=== PATIENT | male | born 1950 | race Caucasian/White ===

== ENCOUNTER 2020-04-06 12:37 | Emergency (ER) | payer OTHER, MEDICARE, SELFPAY ==
[2020-04-06 12:39] VITALS: BP 130/86; PULSE 80; RESP 18; TEMP 36.4; O2SAT 96; BMI 23.5
--- NOTE | 2020-04-06 13:00 | RAD_ITS ---
STUDY: X-RAY - LEFT WRIST REASON FOR EXAM: Male, 69 years old. FALL, PAIN TECHNIQUE: 3 view(s) of the wrist were obtained. COMPARISON: None. FINDINGS: Nondisplaced transverse fracture of the distal radial metaphysis with extension to the articular surface. Normal radiocarpal articulation. Normal distal radioulnar articulation. Normal carpal bones. Normal carpal articulations. Normal carpometacarpal articulation of the thumb. Normal second through fifth carpometacarpal articulations. Normal visualized metacarpal bones. Soft tissue swelling. RAD/Wrist min 3 Views IMPRESSION: Nondisplaced transverse fracture of the distal radial metaphysis with extension to the articular surface. Soft tissue swelling. Electronically Signed: Declan Martinez, at 13:18 EDT , Service support ,
--- NOTE | 2020-04-06 13:06 | ED.VIS.GEN ---
History of Present Illness Chief Complaint: Upper Extremity Injury Informant: Patient Onset: Today Context: Sudden Onset Timing: Continuous Current Severity: Moderate Maximum Severity: Moderate Narrative: The patient is a [id number] male that presents to the emergency department left left wrist injury. Patient states that he was standing working on his truck. He lost his balance and fell. He landed on an outstretched left wrist. He said some pain and swelling in the wrist. He did not strike his head. He denies other injury. He is otherwise been in his normal state of health. Prior similar symptoms: No Recent Illness/Hospitalization: No Past Medical History - Allergies and Home Meds Allergies/Adverse Reactions: Allergies No Known Allergies Allergy (Verified 04/06/20 12:43) Primary Care Physician: Tim Patterson MD [STAFF PHYSICIAN] - Prior records reviewed: Yes Past Medical History: - - Patient denies any significant medical history Surgical History: noncontributory Review of Systems General: Denies: Chills, Fever, Sweats Eyes: Denies: Visual changes - bilaterally, Diplopia ENT: Denies: Rhinorrhea, Sore throat Cardiovascular: Denies: Chest pain, Palpitations Respiratory: Denies: Dyspnea, Cough, Dyspnea on exertion Gastrointestinal: Denies: Abdominal pain, Nausea, Vomiting, Diarrhea, Melena, Hematochezia Genitourinary: Denies: Dysuria, Hematuria, Frequency Musculoskeletal: Denies: Back pain, Extremity Pain Skin: Denies: Rash, Wounds Neurological: Denies: Headache, Weakness, Numbness Physical Exam Vital Signs/Narrative: Vital Signs Temp Pulse Resp BP Pulse Ox 04/06/20 12:39 97.5 F L 80 18 130/86 H 96 Inital Vital Signs reviewed: Yes General: Well nourished, Well developed, No Acute Distress Head: Normocephalic, Atraumatic Eyes: Perrl, EOMI ENT: Moist mucous membranes, No rhinorrhea Neck: Supple, Nontender Cardiovascular: Regular rate, Regular rhythm, No murmurs Respiratory: No distress, CTA bilaterally, Chest nontender Abdomen: Soft, Nontender, Nondistended, Normal bowel sounds Back: Nontender, Normal Inspection Extremities: No edema, Tenderness - Tender over the dorsum of the left wrist. No obvious deformity. 2+ radial ulnar pulses. Anterior interosseous, posterior interosseous, and ulnar nerve preserved. Skin: Normal color, No rash Neurological: Alert, Oriented x3, Cranial nerves II-XII grossly intact, Normal Strength, Normal Sensation Psychological: Normal affect, Normal Mood Diagnostic/Tx/Re-eval - Medical Decision Making X-rays were obtained of the patient's wrist. He has a nondisplaced distal radius fracture with questionable intra-articular extension. Pulses are normal. He is neurovascular intact. The patient was placed in a custom Ortho-Glass AP splint using 20 inches of 3 inch Ortho-Glass. He is given a sling. He declined analgesics. He will be given outpatient orthopedic follow-up and will be discharged home. Impression 1. Closed nondisplaced distal radius fracture 2. Splint by ED physician ED Disposition - Plan for ED Patient: Instructions: ED Fx Colles Wrist No Redu Requ Referrals: Tim Patterson MD [STAFF PHYSICIAN] -
--- NOTE | 2020-04-06 13:17 | NURSING ---
MS 2, COVID UNIT PAINTSIL DYSPNEA, CHF, COVID
--- NOTE | 2020-04-06 13:56 | ED.RN ---
[facility] service called. this RN called the employer and talked to Blayne Hawkins from employer and he said no drug screen was needed. He would like not to go through workers comp and pay with ryan from employer. Transferred to registration. phone number [phone]
[2020-04-06 14:34] VITALS: RESP 16
== END 2020-04-06 14:36 | disposition home or self-care (01) ==
PROVIDERS: Emergency Provider Emergency Medicine
DX: S52.92XA Unspecified fracture of left forearm, initial encounter for closed fracture (principal); W01.0XXA Fall on same level from slipping, tripping and stumbling without subsequent striking against object, initial encounter
CPT/HCPCS: 29125; 73110; 99283

== ENCOUNTER → 2020-08-14 09:07 | Outpatient (CLI) | payer MEDICARE, OTHER, SELFPAY ==
[2020-08-14 10:37] LABS: PSA,Total- Diagnostic 2.26 ng/mL (0.0-4.0)
[2020-08-14 11:39] LABS: Bacteria 0 SEEN /hpf (None Seen); Mucous, Urine 0 SEEN /hpf (<or=2+)
[2020-08-14 11:51] LABS: Color, Urine Yellow (Yellow); Glucose, Dipstick Normal (Normal); Ketone-Dipstick Negative (Negative); Leukocyte Esterase-Dipstick 25 /ul (Negative); Nitrite-Dipstick Negative (Negative); Occult Blood-Urine 25 /ul (Negative); Protein-Dipstick Negative (Negative); Specific Gravity, Urine 1.025 (1.002-1.030); Urine Bilirubin Dipstick Negative (Negative); Urine Clarity Sl. Cloudy (Clear); Urine Urobilinogen Normal (Normal)
[2020-08-14 12:01] LABS: Red Blood Cells-Urine 0-5 SEEN /hpf (0-5); Squamous Epithelial Cells - UA 0-5 SEEN /hpf (0-5); White Blood Cells 0-5 SEEN /hpf (0-5)
== END ==
PROVIDERS: PCP Family Medicine; Referring Provider Nurse Practitioner Adult Health; Visit Provider Nurse Practitioner Adult Health
DX: N40.2 Nodular prostate without lower urinary tract symptoms (principal); R31.9 Hematuria, unspecified
CPT/HCPCS: 36415; 81001; 84153

== ENCOUNTER → 2023-06-22 | Outpatient (CLI) | payer MEDICARE, OTHER, SELFPAY ==
[2023-06-22 17:38] LABS: PSA,Total - Annual Screen 3.73 ng/mL (0.00-4.00)
[2023-06-24 11:09] LABS: QNTFERON TB Mitogen Value > 10.00 IU/mL (.); QNTFERON TB Nil Value 0.06 IU/mL (.); QNTFERON TB1+ Ag Value 0.07 IU/mL (.); QNTFERON TB2+ Ag Value 0.05 IU/mL (.); QNTIFERON TB Positive Criteria Negative (Negative)
== END | disposition home or self-care (01) ==
PROVIDERS: PCP Family Medicine; Referring Provider Urology; Visit Provider Urology
DX: Z12.5 Encounter for screening for malignant neoplasm of prostate (principal)
CPT/HCPCS: 36415; 84153; 86480; G0103

== ENCOUNTER 2023-12-29 09:56 | Outpatient (CLI) | payer MEDICARE, OTHER, SELFPAY ==
[2023-12-29 10:03] LABS: Bacteria 0 SEEN /hpf (None Seen); Mucous, Urine 0 SEEN /hpf (<or=2+); Red Blood Cells-Urine 0 SEEN /hpf (0-5); Squamous Epithelial Cells - UA 0 SEEN /hpf (0-5); White Blood Cells 0 SEEN /hpf (0-5)
[2023-12-29 12:11] LABS: Erythrocyte Sedimentation Rate 37 mm/hr (0-20)
[2023-12-29 12:14] LABS: Absolute Lymphocyte Count 0.76 X10^3/uL (0.83-4.51); Absolute Neutrophil Count 8.9 X10^3/uL (2.0-7.7); Basophil# 0.06 X10^3/uL; Basophil% 0.6 % (0-1); Color, Urine Yellow (Yellow); Eosinophil# 0.06 X10^3/uL; Eosinophils% 0.6 % (0-5); Glucose, Dipstick Normal (Normal); Hematocrit 43.2 % (40-54); Hemoglobin 13.9 g/dL (13.0-16.5); Ketone-Dipstick 5 mg/dl (Negative); Leukocyte Esterase-Dipstick 25 /ul (Negative); Lymphocyte # 0.76 X10^3/ul (0.83-4.51); Mean Corp Hgb Conc 32.2 g/dL (32-36); Mean Corpuscular Hgb 28.3 pg (27.0-32.0); Mean Corpuscular Volume 87.8 fL (80-94); Mean Platelet Vol. 11.8 fl (6.2-12.0); Monocyte# 0.99 X10^3/uL; Monocyte% 9.1 % (0-10); NRBC Flagged by Analyzer 0 % (0-5); Neutrophil # 8.92 X10^3/uL (2.7-7.7); Neutrophil % 82.3 % (47-70); Nitrite-Dipstick Negative (Negative); Occult Blood-Urine 10 /ul (Negative); Platelet Count 243 K/mm3 (150-450); Protein-Dipstick 15 mg/dl (Negative); RBC Distribution Width CV 15.3 % (11.6-14.6); RBC Distribution Width SD 48.9 fl (35.1-43.9); Red Blood Count 4.92 M/mm3 (4.6-6.2); Urine Bilirubin Dipstick Negative (Negative); Urine Clarity Clear (Clear); Urine Urobilinogen 4 mg/dl (Normal); White Blood Count 10.8 K/mm3 (4.4-11.0)
[2023-12-29 12:33] LABS: Calcium Oxalate Crystals Ur 3+ /hpf (<or=2+)
[2023-12-29 13:31] LABS: ALB/GLOB Ratio 0.8 RATIO (0.9-2.4); AST(SGOT) 79 U/L (15-37); Alanine Aminotransfer ALT/SGPT 133 U/L (16-61); Albumin, Serum 3.4 g/dL (3.2-5.0); Alkaline Phosphatase 662 U/L (45-117); Anion Gap 2 (5-15); BUN 21 mg/dL (7-18); BUN/Creat Ratio 20.6 RATIO (10-20); Calcium,Total 11.2 mg/dL (8.5-10.1); Chloride 107 mmol/L (98-107); Creatinine, Serum 1.02 mg/dL (0.70-1.30); EST Glomerular Filtration Rate 76 mL/min (>60); Est Glom Filt Rate - Afr Amer 92 mL/min (>60); GGTP 426 U/L (15-85); Globulin 4.3 g/dL (2.2-4.2); Glucose 92 mg/dL (74-106); Lipase 25 U/L (13-75); Potassium 4.1 mmol/L (3.5-5.1); Protein, Total 7.7 g/dL (6.4-8.2); Sodium Level 134 mmol/L (136-145); Thyroid Stim Hormone (TSH) 1.17 uIU/mL (0.358-3.74)
[2023-12-30 13:08] LABS: ANTINUCLEAR ANTIBODIES DIRECT Negative (Negative)
[2024-01-06 12:09] LABS: H. PYLORI STOOL AG Negative (Negative); Pancreatic Elastase, Fecal 161 (>200)
== END 2023-12-29 23:59 | disposition home or self-care (01) ==
PROVIDERS: PCP Family Medicine; Referring Provider Family Medicine; Visit Provider Family Medicine
DX: R19.7 Diarrhea, unspecified (principal); R11.2 Nausea with vomiting, unspecified
CPT/HCPCS: 36415; 80053; 81001; 82653; 82977; 83690; 84443; 85025; 85652; 86038; 86140; 87338

== ENCOUNTER → 2024-01-13 | Outpatient (CLI) | payer MEDICARE, OTHER, SELFPAY ==
--- NOTE | 2024-01-13 13:29 | CT_ITS ---
STUDY: CT ABDOMEN AND PELVIS WITH CONTRAST REASON FOR EXAM: Male, 73 years old. Postprandial abdominal pain and nausea. RADIATION DOSAGE (If Supplied By Facility): CTDIvol = ( 12.22 ) mGy, DLP = ( 632.07 ) mGycm TECHNIQUE: Transaxial images were obtained from the dome of the diaphragm to the symphysis pubis with oral contrast. Oral and amp; IV Readi-CAT and amp; 100mL Isovue-300 was administered. Sagittal and coronal images were reconstructed. Individualized dose optimization techniques were used for this CT. COMPARISON: None. FINDINGS: Minimal degree of bibasilar atelectasis. Mild coronary artery calcification. Mild degree of the intrahepatic biliary ductal dilatation. Abnormal appearance of the gallbladder. Soft tissue masses are seen within the gallbladder extending into the neck of the gallbladder. Tumefactive sludge versus possible mass should be ruled out. Normal spleen. 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 Normal pancreas. Normal bilateral adrenal glands. Normal right kidney. Normal left kidney. Normal visualized stomach. Normal small intestine. There are multiple colonic diverticula consistent with diverticulosis. The appendix is visualized and appears normal. Normal abdominal aorta. Normal inferior vena cava. Normal retroperitoneum. Normal urinary bladder. There is heterogeneous enlargement of prostate with indentation at the bladder base. This also causes indentation along the anterior right side of the rectum. The prostate measures 5.9 cm x 5.3 cm. It is of heterogeneous echotexture with calcifications. Normal abdominal wall. There are diffuse degenerative changes of the visualized lumbar spine. There is evidence of a 1.1 cm sclerotic lesion in the right iliac bone. This may represent either bone island or possible metastasis. CT/Abdomen/Pelvis WITH Contrast IMPRESSION: Abnormal appearance of the gallbladder with evidence of the soft tissue densities within the gallbladder and neck of the gallbladder. This may represent either tumefactive sludge with possible mass lesion. Intrahepatic bile ductal dilatation. Electronically Signed: Declan Martinez MD at 14:40 EST ,
== END | disposition home or self-care (01) ==
LOC: CT 13:28
PROVIDERS: PCP Family Medicine; Referring Provider Family Medicine; Visit Provider Family Medicine
DX: R74.01 Elevation of levels of liver transaminase levels (principal)
CPT/HCPCS: 74177; Q9967

== ENCOUNTER → 2024-01-26 | Outpatient (CLI) | payer MEDICARE, OTHER, SELFPAY ==
--- NOTE | 2024-01-26 07:09 | US_ITS ---
INDICATION: abnormal CT, elevated LFTs EXAMINATION: Ultrasound US Abdomen Limited (quadrant) TECHNIQUE: Lopes scale and color doppler imaging was performed of the right upper quadrant. COMPARISON: CT scan of the abdomen and pelvis of 01/13/2024. FINDINGS: LIVER: There is normal echotexture. The liver is enlarged measuring about 18.3 cm in length. The portal vein is patent with normal hepatopedal flow. Dilated intrahepatic biliary ducts. No focal hepatic lesion. There is no free fluid. GALLBLADDER AND BILIARY TREE: Diffuse thickening of the gallbladder wall measuring about 6 mm. There is sludge in the gallbladder with single large gallstone. The proximal common bile duct measures 8 mm, which is dilated. Sonographic Pineda''s sign: Negative. PANCREAS: No focal abnormality is demonstrated in the pancreas. No pancreatic ductal dilatation. Right kidney: The right kidney measures 10.4 cm in length. The renal cortex measures 1.3 cm. No evidence of hydronephrosis. US/Gallbladder IMPRESSION: 1. Sludge and single large gallstone with thickening of the gallbladder wall. Cholecystitis cannot be excluded. 2. Dilated common bile duct and intrahepatic biliary ducts. Further evaluation with MRCP might be of value. 3. Hepatomegaly. Electronically Signed: Kenrick Silvestre MD at 8:16 EST ,
--- OUTSIDE RECORDS SUMMARY | 2024-01-26 07:27 | XMS RPT_ITS | CCD ---
Author Name Unknown Address [address] [place] [id number] Organization [facility] Care Team Providers Care Railcar Switchman Name Role Phone MARA TUCKER MD Admitting Unavailable MARA TUCKER MD Primary Care Unavailable MARA TUCKER MD Consulting Unavailable MARA TUCKER MD Attending Unavailable PROVIDER, UNKNOWN Consulting Unavailable PROVIDER, UNKNOWN Consulting Unavailable PROVIDER, UNKNOWN Consulting Unavailable Problems Active Problems Problem Classification Problem Date Documented Da te Episodic/Chronic Unclassified (2 sources) CONTACT WITH AND SUSPECTED EXPOSURE TO COVID-19; Translations: [CONTACT WITH AND SUSPECTED EXPOSURE TO COVID-19] Onset: 09-10-2022 Past or Other Problems Problem Classification Problem Date Documented Da te Episodic/Chronic Unclassified (1 source) CONTACT WITH AND SUSPECTED EXPOSURE TO COVID-19; Translations: [CONTACT WITH AND SUSPECTED EXPOSURE TO COVID-19] Onset: 09-10-2022 Results Test Name Value Interpretation Reference Range Facil ity Encounters Encounter Date Encounter Type Care Provider Facility Start: 09-10-2022 End: 09-10-2022 ambulatory [facility] Payers Date Payer Category Payer Unknown [id number] Medicare [id number] Summary Purpose Family History No Family History Records Found Advance Directives No Advanced Directives Records Found Additional Source Comments (unrecognized sect ion and content) No Status Records Found INFORMATION SOURCE (unrecogn ized section and content) FOR RECORDS PERTAINING TO PATIENTS WHO ARE OR HAVE BEEN ENROLLED IN A CHEMICAL DEPENDENCY/SUBSTANCEABUSE PROGRAM, SOME INFORMATION MAY BE OMITTED. This clinical summary was aggregated from multiple sources. Caution should be exercised in using it in the provision of clinical care. This summary normalizes information from multiple sources, and as a consequence, information in this document may materially change the coding, format and clinical context of patient data. In addition, data may be omitted in some cases. CLINICAL DECISIONS SHOULD BE BASED ON THE PRIMARY CLINICAL RECORDS. [facility]. provides no warranty or guarantee of the accuracy or completeness of information in this document.
[2024-01-26 15:01] LABS: AST(SGOT) 62 U/L (15-37); Alanine Aminotransfer ALT/SGPT 81 U/L (16-61); Albumin, Serum 3.3 g/dL (3.2-5.0); Alkaline Phosphatase 687 U/L (45-117); Bilirubin, Direct 0.93 mg/dL (0.00-0.30); Globulin 4.1 g/dL (2.2-4.2); Protein, Total 7.4 g/dL (6.4-8.2)
== END | disposition home or self-care (01) ==
PROVIDERS: PCP Family Medicine; Referring Provider Surgery; Visit Provider Surgery
DX: R79.89 Other specified abnormal findings of blood chemistry (principal); R93.5 Abnormal findings on diagnostic imaging of other abdominal regions, including retroperitoneum
CPT/HCPCS: 36415; 76705; 80076

== ENCOUNTER 2024-02-09 11:52 | Observation (INO) | payer MEDICARE, OTHER, SELFPAY ==
[2024-02-09] VITALS (11 sets, daily range): BP systolic 119–139; BP diastolic 63–85; PULSE 69–87; RESP 16–18; TEMP 36.1–37.1; O2SAT 95–100; BMI 21.4
--- NOTE | 2024-02-09 09:13 | EKG12_ITS ---
Test Reason : PRE OP Blood Pressure : / mmHG Vent. Rate : 059 BPM Atrial Rate : 059 BPM P-R Int : 158 ms QRS Dur : 092 ms QT Int : 370 ms P-R-T Axes : 037 004 006 degrees QTc Int : 366 ms Sinus bradycardia Otherwise normal ECG No previous ECGs available Confirmed by Dav Bolaños ([id number]), assignment editor EARLINE RICHARDS ([id number]) on 02/12/2024 6:25:17 AM Referred By: Boubacar Robertson Confirmed By:Dav Bolaños
[2024-02-09] MEDS: Lactated Ringers 1,000 ML 15 ML IV (09:33)
--- NOTE | 2024-02-09 10:08 | HP.PCM_ITS ---
History and Physical Date of Admission: 02/09/24 Intake Vital Signs 01/25/2414:53 Height 6 ft Weight: 160 lb BMI 21.7 BP 127/71 H Blood Pressure Location Rt brachial Position Sitting Respiration 16 Intake Visit Reasons: GALLBLADDER Chief Complaint: gallbladder [employer] Supervisor Required: No Is patient in pain?: No Allergies No Known Allergies Allergy (Verified 01/26/24 14:54) Medications ascorbic acid (vitamin C) 1,000 mg capsule 1 g PO DAILY 01/26/24 [History Confirmed 01/26/24] pantoprazole 40 mg tablet,delayed release mg PO 01/26/24 [History Confirmed 01/26/24] PFSH Medical History Abnormal CT of the abdomen Bilateral femoral hernias Cholelithiasis Diarrhea Elevated LFTs Nausea Surgical History S/P appendectomy S/P bilateral inguinal hernia repair Family History Mother Breast cancerAunt Breast cancerUncle CancerBrother Myocardial infarction Heart disease Social History Smoking Status: Unknown if ever smoked alcohol intake: never HPI HPI HPI: Patient is a 73-year-old male who is currently not having any pain who comes here for gallstones. Patient had an attack about a month ago and was seen in [facility] emergency room. He had a CT scan which showed 2 large masses in the gallbladder suspected stones. Patient also had elevated LFTs. The patient went home and said that he is now feeling fine but he had a recent ultrasound which still shows large gallstones with some possible thickening. He denies any nausea or vomiting. ROS General General: Yes weight change; No appetite, fatigue, colon cancer, breast cancer or weakness HEENT HEENT: No difficulty swallowing, eye injury, eye surgery, swollen glands or hoarseness Endo Endocrine: No thyroid disease, diabetes mellitus, thyroid cancer, Hair loss, heat intolerance or cold intolerance Skin Skin: No rash or changing moles Breast Breast: No left breast lump, right breast lump, nipple discharge, breast pain, abnormal mammogram, abnormal US or breast enlargement Musc Musculoskeletal: No back problems, arthritis, rheumatoid arthritis, gout or joint pain Cardio Cardiovascular: No murmur, pacemaker, heart disease, atrial fibrillation, high blood pressure, heart attack, heart stent, palpitations, shortness of breat with exertion or chest pain Psych Psychiatric: No depression, anxiety or hearing voices Resp Respiratory: No shortness of breath, No sleep apnea, No cough, No COPD, No asthma, No emphysema and No wheezing Gastro Gastrointestinal: Yes abdominal pain, Yes nausea or vomiting, Yes diarrhea, No constipation, No blood in stool, No acid reflux, No hemorrhoids, No ulcers, Yes gallbladder problem and No black,tarry stools Jose Hematologic: No blood thinners, No blood disorders, No bleeding, No anemia and No blood clots Neuro Neurologic: No system reviewed and no additional complaints, except as documented, No as per HPI, No abnormal gait, No abnormal hearing, No abnormal movements, No abnormal speech, No behavioral changes, No burning sensations, No confusion, No convulsions, No disequilibrium, No dizziness, No localized weakness, No frequent falls, No headache(s), No lack of coordination, No loss of vision, No memory loss, No numbness, No other visual disturbances, No radicular pain, No restless legs, No sensory deficit, No syncope, No tingling, No tremor(s), No weakness and No other Exam Const General: cooperative Orientation: alert and oriented x3 HENND Head: normal to inspection Neck Neck: normal visual inspection and full ROM Chest Chest palpation & inspection: normal inspection of the chest Resp Effort & Inspection: normal respiratory effort Auscultation: clear to auscultation bilaterally Cardio Rate: regular rate Rhythm: regular rhythm GI Inspection: non-distended Palpation: soft and nontender Skin General: no rashes or lesions noted Neuro General: patient alert and patient oriented x3 Extrem General: full ROM Psych Appearance: grossly normal Mental Status: mental status grossly normal Assessment and Plan Assessment and Plan (1) Cholelithiasis: Status: Acute Qualifiers: Cholelithiasis location: gallbladder Cholecystitis presence: with cholecystitis Cholecystitis acuity: chronic Plan: The patient has cholelithiasis with 2 very large stones in his gallbladder on the CT scan. Ultrasound did show some thickening of his gallbladder but he is currently asymptomatic. We repeated LFTs and his AST and ALT improved but his alk phos did rise a little bit and so did his total bili but he is not jaundiced and he is not having any symptoms. He would like to schedule laparoscopic c holecystectomy with cholangiogram. He is going out of town next week and would like to do it the week after. I informed him that this may be a bad idea and he may develop acute cholecystitis or need emergency surgery on his trip and he understands and is willing to risk it. He will be scheduled for the week after for laparoscopic cholecystectomy with cholangiograms. I discussed the procedure in detail with the patient. I discussed the risks, benefits, and alternatives of the procedure. I discussed the risks including but not limited to bleeding, infection, injury to surrounding organs such as the liver, bile duct, bowels. I did discuss the possibility of having to convert to an open procedure as well as the possibility that if any injuries occurred this may necessitate further surgery at a tertiary care center. Boubacar Robertson MD Pager: [facility] [address] [place] [address], [address] [place] [address] Office: I have examined the patient and the H&P has been reviewed. There are no clinical changes since date of exam.
[2024-02-09] MEDS: Cefotetan 2 GM in 0.9% NS 100 ML IV (10:39)
--- NOTE | 2024-02-09 11:48 | PCM.OPRPT ---
Report of Operation Date of Procedure: 02/09/24 Pre-Operative Diagnosis: Cholelithiasis Post-Operative Diagnosis: Cholelithiasis with possible malignancy Surgery/Procedure Performed:: Exploratory laparoscopy Type of Anesthesia: General/Regional Specimen's removed: None Drains: BARI to bulb suction Estimated Blood Loss (mL): 10 Description of Procedure: Patient was brought back to the operating room and general anesthesia was induced. The abdomen was prepped and draped in usual sterile fashion. Midline incision was made superior to the umbilicus and deepened to the fascia which was elevated and incised. A port was placed into the abdomen and the abdomen was insufflated 15 mmHg. The camera was inserted and there were no injuries from entry. Patient was placed in steep reverse Trendelenburg position. Under direct visualization two 5 mm ports were placed in the right upper quadrant and a 5 mm port was placed in the epigastric region. The gallbladder was elevated and there were a lot of adhesions to the surrounding fat to the gallbladder wall. In order to grasp the gallbladder it was aspirated of its contents using aspiration suction. These adhesions were taken down but then an area of tight adhesion and inflammation was encountered in the mid gallbladder. Reviewing the CT scan there was a large bulge on both sides of this. I am concerned for malignancy. I was unable to dissect around the gallbladder to get behind this area or inferior to it to dissect the gallbladder off of the duodenum. At this point the decision was made to abort the procedure and send him to a tertiary center for HPB surgeon. Because I had aspirated the gallbladder there was a small hole on the surface and this was sutured closed using 2-0 silk suture. A drain was left in place 15 Mauritanian round to suction any bile that may leak. The drain was sutured to the skin using 3-0 nylon. Once it was in adequate position the abdomen was allowed to desufflate after irrigation and suction. The fascia was closed with [id number] 0 Vicryl suture. All of the skin incisions were injected with local anesthetic. They were all closed with interrupted 4-0 Monocryl sutures. Steri-Strips and bandages were applied. BARI was placed to bulb suction. Patient will be admitted for observation. Admit VTE Documentation VTE Mechan Device Prophylaxis: SCD's
[2024-02-09] MEDS: Bupivacaine Mpf 0.5% 30 ML VIAL (11:55)
[2024-02-09] MEDS: 0.9% Normal Saline (1000mL) 1,000 ML 60 ML IV (14:21)
--- NOTE | 2024-02-09 15:46 | EX.PCM.DISCH ---
Discharge Instructions Diet Discharge Diet: Light diet - advance as tolerated Activity Discharge Activity: May Shower Lifting Restrictions: 15 lbs for 2 weeks Dressing / Incision Call your doctor if your incision/area has: Continuous Slow Oozing, Sudden Increased Bleeding, Increased Pain/ Swelling, Increased Redness, Foul Smelling Discharge and Swelling at the incision site Call your doctor if you observe: Fever of 101 or Higher Remove Dressing in: 2 days Cleanse incision/area with: Soap & Water Drain: Suction Follow Up Care Please Follow Up With: Boubacar Robertson MD When: If no appt at [facility] this week call for appt this thursday for drain removal [phone] Test Results: Test results from this visit will be discussed in further detail at your follow-up appointment, if applicable. Discharge Plan Admission Admit Date/Time: 02/09/24 11:52 Attending Provider: Boubacar Robertson Primary Care Provider: Rock Johnson Discharge Orders/Prescriptions Prescriptions: New oxycodone 5 mg Tablet 5 - 10 mg PO Q4H PRN PRN (Reason: Pain Score 4-10) 5 Days Qty: 15 0RF Continued ascorbic acid (vitamin C) 1,000 mg capsule 1 g PO DAILY Referrals / Follow Up: Rock Johnson MD [Primary Care Provider] - Disposition Disposition (needs filled in before D/C Order can be placed): Home, Self Care
[2024-02-09] MEDS: Acetaminophen 325 MG Tablet 650 MG PO (18:45)
== END 2024-02-09 19:02 | disposition home or self-care (01) ==
LOC: SDC 11:59 → MS3 11:59
PROVIDERS: Admitting Provider Surgery; PCP Family Medicine; Referring Provider Surgery; Visit Provider Surgery
PROC: (CPT 47610; principal; 2024-02-09 10:15)
DX: K80.10 Calculus of gallbladder with chronic cholecystitis without obstruction (principal); K21.9 Gastro-esophageal reflux disease without esophagitis; R93.5 Abnormal findings on diagnostic imaging of other abdominal regions, including retroperitoneum; R19.09 Other intra-abdominal and pelvic swelling, mass and lump; K66.0 Peritoneal adhesions (postprocedural) (postinfection)
CPT/HCPCS: 49329; 00790; 93005; 97802; 99221; J7030; J7120; G0378; J2405